=== PATIENT | male | born 1985 | race Caucasian/White ===

== ENCOUNTER 2018-08-07 13:14 | Day surgery (SDC) | payer BC ==
[~2018-08-07] VITALS: Ht 188 cm; Wt 90.6 kg
[2018-08-07 13:52] VITALS: BP 129/80
[2018-08-07] MEDS ORDERED: NO MEDICATIONS (14:00)
[2018-08-07] MEDS ORDERED: BUPIVACAINE/PF-EPI 0.5% 1:200K ONE (14:06)
[2018-08-07] MEDS ORDERED: NEOSPORIN OINT, 15GM ONE (14:07)
[2018-08-07] MEDS ORDERED: FENTANYL PF 250 MCG/5ML ONE (14:25)
[2018-08-07] MEDS ORDERED: MIDAZOLAM 1 MG/ML, 2ML ONE ×2 (14:25→14:51)
[2018-08-07] MEDS ORDERED: ONDANSETRON 2MG/ML, 2ML ONE ×2 (14:30→16:23)
[2018-08-07] MEDS ORDERED: SUCCINYLCHOLINE 20 MG/ML, 10ML ONE (14:30)
[2018-08-07] MEDS ORDERED: DEXAMETHASONE 4 MG/ML, 1ML ONE (14:30)
[2018-08-07] MEDS ORDERED: KETOROLAC 30 MG/1 ML ONE (14:30)
[2018-08-07] MEDS ORDERED: PROPOFOL 10 MG/ML, 50ML ONE (14:30)
[2018-08-07] MEDS ORDERED: CEFAZOLIN 1,000 MG ONE (14:30)
[2018-08-07] MEDS ORDERED: LACTATED RINGERS 1,000 ML IV SCH (14:34)
[2018-08-07] MEDS ORDERED: MEPERIDINE/PF 50 MG/ML ONE (15:42)
[2018-08-07] MEDS ORDERED: FENTANYL PF 100 MCG/2ML ONE (16:04)
[2018-08-07] MEDS ORDERED: HYDROmorphone 2 MG/ML, 1ML ONE (16:04)
[2018-08-07] MEDS ORDERED: ACETAMINOPHEN 325 MG TABLET PO PRN (16:30)
[2018-08-07] MEDS ORDERED: ONDANSETRON 2MG/ML, 2ML IV PRN (16:30)
[2018-08-07] MEDS ORDERED: LORazepam 2 MG/ML, 1ML IVPush PRN (16:30)
[2018-08-07] MEDS ORDERED: MEPERIDINE/PF 25MG/0.5ML IVPush PRN (16:30)
[2018-08-07] MEDS ORDERED: LABETALOL 5MG/ML, 20ML IV PRN (16:30)
[2018-08-07] MEDS ORDERED: OXYcodone 5 MG/5 ML ORAL.SOL UDC PO PRN (16:30)
[2018-08-07] MEDS ORDERED: HYDROmorphone 2 MG/ML, 1ML IVPush PRN (16:30)
[2018-08-07] MEDS ORDERED: ALBUTEROL SULFATE 2.5 MG/3 ML NPPB PRN (16:30)
[2018-08-07] MEDS ORDERED: hydrALAzine 20 MG/ML, 1ML IV PRN (16:30)
[2018-08-07] MEDS ORDERED: FENTANYL PF 100 MCG/2ML IV PRN (16:30)
[2018-08-07] MEDS ORDERED: PROMETHAZINE 25 MG/ML, 1ML IV PRN (16:30)
== END 2018-08-07 18:30 | disposition home or self-care (01) ==
LOC: SDC 13:14
PROVIDERS: ATTEND Urology
DX: C62.92 Malignant neoplasm of left testis, unspecified whether descended or undescended (principal)
CPT/HCPCS: 36415; 54530; 82105; 83615; 84702; 88309; J0330; J0690; J1100; J1170; J1885; J2175; J2250; J2405; J2704; J3010; J7120